=== PATIENT | female | born 1935 | race Hispanic/Latino ===

== ENCOUNTER 2018-10-31 03:47 | Emergency (ER) | payer MEDICARE ==
[2018-10-31 03:47] VITALS: BMI 20.7
[2018-10-31 04:09] VITALS: TEMP 98.8; O2SAT 98
[2018-10-31 04:51] LABS: BASO # 0.1 K/uL (0.0-0.2); BASO % 0.8 % (0.0-2.0); EOS # 0.2 K/uL (0.0-0.7); EOS % 2.3 % (0.0-4.0); LYMPH # 1.3 K/uL (1.0-4.3); LYMPH % 13.9 % (20.0-40.0); MEAN CELL VOLUME 98.1 fl (81.0-99.0); MEAN CORPUSCULAR HEMOGLOBIN 32.4 pg (27.0-31.0); MEAN PLATELET VOLUME 9.2 fl (7.2-11.7); MONO # 0.7 K/uL (0.0-0.8); MONO % 8.1 % (0.0-10.0); NEUT # 6.9 K/uL (1.8-7.0); NEUT % 74.9 % (50.0-75.0); RBC 3.71 Mil/uL (3.80-5.20); RED CELL DISTRIBUTION WIDTH 14.1 % (11.5-14.5); WHITE BLOOD COUNT 9.2 K/uL (4.8-10.8)
--- NOTE | 2018-10-31 04:56 | ED PDOC ---
HPI: Chest Pain Time Seen by Provider: 10/31/18 03:49 Chief Complaint (Nursing): Chest Pain History Per: Patient History/Exam Limitations: no limitations Onset/Duration Of Symptoms: Hrs Current Symptoms Are (Timing): Better Additional Complaint(s): 83 year old with PMHx of HTN and ADIN presenting with chest pain. States that she was startled by a phone call and 1AM and was able to go back to bed but around 2:30AM she woke up again with left sided chest pain that she describes as a "broken rib kind of pain", however denies injury or rib fracture. States that taking a deep breath and expanding her rib cage caused more pain, but states that when she held her chest, the pain reduced and she was able to take a full deep breath. States that she thinks her current presentation was due more to anxiety than anything else. States the pain does not radiate, is not accompanied by sweats, chills. States the pain is less than before. PMD: Dr. Villalba Past Medical History Reviewed: Historical Data, Nursing Documentation, Vital Signs Vital Signs: Last Vital Signs Temp 98.8 F 10/31/18 03:57 Pulse 75 10/31/18 03:57 Resp 18 10/31/18 03:57 BP 135/108 H 10/31/18 03:57 Pulse Ox 98 10/31/18 03:57 - Medical History PMH: Anxiety, Arthritis, Back Problems (lumbar radiculopathy - post herpetic), HTN, Hypothyroidism, Pneumonia, Pneumothorax (During rotator cuff repair sx) Denies: Chronic Kidney Disease - Surgical History Surgical History: Tonsillectomy - Family History Family History: States: Unknown Family Hx - Home Medications Home Medications: Ambulatory Orders Medication Instructions Recorded Calcium Carbonate/Magnesium Ox 1 tab PO DAILY 08/27/16 [Oyster Shell Calcium-Magnes Tb] Gabapentin [Neurontin] 600 mg PO TID 08/27/16 Levothyroxine [Synthroid] 50 mcg PO DAILY 08/27/16 Multivitamin [Multi-Vitamin Daily] 1 tab PO DAILY 08/27/16 Valsartan/Hydrochlorothiazide 1 tab PO DAILY 08/27/16 [Valsartan-Hctz 160-12.5 mg Tab] - Allergies Allergies/Adverse Reactions: Allergies Allergy/AdvReac Type Severity Reaction Status Date / Time scallops Allergy RASH Verified 10/31/18 04:00 MARIA E Risk Score for UA/NSTEMI - MARIA E Risk Score Age > 64: YES 3 or more CAD Risk Factors: NO Known CAD (Stenosis greater than 50%): NO Aspirin use in past 7 days: NO Severe Angina: NO EKG ST changes greater than 0.5mm: NO Positive Cardiac Marker: NO MARIA E Score: 1 Risk %: 5% Wells Criteria for PE - Lula Criteria for Pulmonary Embolism Clinical Signs and Symptoms of DVT: No P.E is #1 Diagnosis, or Equally Likely: No Heart Rate >100: No Immobilization at least 3 days;Surgery previous 4 weeks: No Previous, objectively diagnosed PE or DVT: No Hemoptysis: No Malignancy w/treatment within 6 months, or palliative: No Total Score: 0 Review of Systems ROS Statement: Except As Marked, All Systems Reviewed And Found Negative Cardiovascular: Positive for: Chest Pain Respiratory: Positive for: Pleuritic Pain Physical Exam - Reviewed Nursing Documentation Reviewed: Yes Vital Signs Reviewed: Yes - Physical Exam Appears: Positive for: Well, Non-toxic, No Acute Distress Head Exam: Positive for: ATRAUMATIC, NORMAL INSPECTION, NORMOCEPHALIC Skin: Positive for: Normal Color, Warm, DRY Eye Exam: Positive for: EOMI, Normal appearance, PERRL ENT: Positive for: Normal ENT Inspection Neck: Positive for: Normal, Painless ROM Cardiovascular/Chest: Positive for: Regular Rate, Rhythm, Chest Non Tender Respiratory: Positive for: CNT, Normal Breath Sounds Gastrointestinal/Abdominal: Positive for: Normal Exam, Soft Back: Positive for: Normal Inspection Extremity: Positive for: Normal ROM Neurological/Psych: Positive for: Awake, Alert, Normal Tone - Laboratory Results Result Diagrams: 10/31/18 04:48 10/31/18 04:48 - ECG ECG Rhythm: Positive for: Normal QRS, Normal ST Segment, Sinus Rhythm O2 Sat by Pulse Oximetry: 98 Medical Decision Making Medical Decision MakinAM A/P: 83 year old F presenting with chest pain --Chest pain does not sound cardiac, very atypical --Pain sounds to be more related to musculoskeletal causes, possibly costochondritis --Will get cardiac enzymes and CXR to further risk stratify patient --Will give NSAID and re-eval 645AM --Patient no longer having any pain, vitals stable --Very well appearing --Return precautions given, advised patient to followup with Dr. Villalba Disposition - Clinical Impression Clinical Impression: Atypical chest pain - Disposition Referrals: Mateo Villalba MD [Staff Provider] - Disposition: Routine/Home Disposition Time: 06:50 Condition: IMPROVED Instructions: Chest Pain That Is Not Caused by the Heart (DC) Forms: [facility] (Bangladeshi)
[2018-10-31 05:00] LABS: BLOOD UREA NITROGEN 19 mg/dl (7-17); GFR NON-AFRICAN AMERICAN > 60
[2018-10-31 06:15] VITALS: BP 152/63; PULSE 78; RESP 15
--- NOTE | 2018-10-31 11:34 | RAD ---
Date of service: 10/31/2018 HISTORY: cp COMPARISON: Chest radiograph dated 10/07/2017. TECHNIQUE: Chest PA and lateral views FINDINGS: LUNGS: Hyperinflated lungs. Stable nodular density in the peripheral right upper lobe. Diffuse emphysematous changes. No focal consolidation. PLEURA: Flattened diaphragms. No significant pleural effusion identified. No pneumothorax apparent. CARDIOVASCULAR: Aortic atherosclerotic calcifications. Cardiomediastinal silhouette stably enlarged. OSSEOUS STRUCTURES: Unchanged. VISUALIZED UPPER ABDOMEN: Normal. OTHER FINDINGS: None. IMPRESSION: No focal consolidation or pleural effusion.
--- NOTE | 2018-10-31 20:31 | CARD ---
APPROVED REPORT Date of service: 10/31/2018 EKG Measurement Heart [id number] <Conclusion> Sinus rhythm with 1st degree AV block Nonspecific ST abnormality Abnormal ECG
== END 2018-10-31 06:38 | disposition home or self-care (01) ==
LOC: H.ER 03:47
DX: R07.89 Other chest pain (principal); I10 Essential (primary) hypertension